=== PATIENT | male | born 1975 | race Caucasian/White ===

== ENCOUNTER 2017-04-04 12:50 | Emergency (ER) | payer SELFPAY ==
[~2017-04-04] VITALS: Ht 172.7 cm; Wt 81.6 kg
[2017-04-04] MEDS ORDERED: ACETAMINOPHEN ES 500 MG TABLET PO ONE (13:15)
[2017-04-04] MEDS ORDERED: IV NORMAL SALINE 1000 ML BAG IV ONE (13:15)
[2017-04-04] MEDS ORDERED: ACETAMINOPHEN ES 500 MG TABLET ONE (13:22)
[2017-04-04 13:34] LABS: BASOPHILS # (AUTO) 0.1 K/uL (0.0-8.0); BASOPHILS % (AUTO) 0.6 % (0.0-2.0); EOSINOPHILS # (AUTO) 0.2 K/uL (0.0-0.7); EOSINOPHILS % (AUTO) 1.8 % (0.0-7.0); HEMATOCRIT 42.5 % (36.7-47.1); HEMOGLOBIN 14.3 g/dL (12.5-16.3); LYMPHOCYTES % (AUTO) 17.4 % (20.5-51.5); MEAN CORPUSCULAR HEMOGLOBIN 30.3 uug (23.8-33.4); MEAN CORPUSCULAR HGB CONC 34 g/dL (32.5-36.3); MONOCYTES # (AUTO) 0.8 K/uL (2.0-10.0); MONOCYTES % (AUTO) 6.7 % (0.0-11.0); NEUTROPHILS # (AUTO) 8.4 K/uL (1.8-8.9); NEUTROPHILS % (AUTO) 73.5 % (38.5-71.5); PLATELET COUNT (AUTO) 194 K/uL (152-348); RED BLOOD CELL COUNT(AUTO) 4.72 MIL/uL (4.06-5.63); WHITE BLOOD COUNT (AUTO) 11.5 K/uL (3.6-10.2)
[2017-04-04 13:45] LABS: CREATININE 1.2 mg/dL (0.6-1.3); POTASSIUM 3.9 mmol/L (3.5-5.1)
[2017-04-04 13:50] LABS: BILIRUBIN,DIRECT 0.1 mg/dL (0.0-0.2); BILIRUBIN,TOTAL 0.4 mg/dL (0.2-1.0)
--- NOTE | 2017-04-04 14:02 | NUR ---
Pt resting in gurney with eyes closed and no s/s of distress.
--- NOTE | 2017-04-04 15:18 | NUR ---
Patient discharged to home in stable conditon. Written and verbal after care instructions given. Patient verbalizes understanding of instructions. Stressed follow up with pmd or return to ER for worsening s/s.
== END 2017-04-04 15:19 | disposition home or self-care (01) ==
LOC: ER 12:50
DX: J02.0 Streptococcal pharyngitis (principal); R07.9 Chest pain, unspecified
CPT/HCPCS: 36415; 71010; 80048; 80076; 83605; 84484; 85025; 85730; 86403; 87040 ×2; 87400; 93005; 99285; A4663; 70030-TC

== ENCOUNTER 2017-07-26 18:24 | Emergency (ER) | payer SELFPAY ==
[~2017-07-26] VITALS: Ht 172.7 cm; Wt 79.4 kg
[2017-07-26] MEDS ORDERED: ACETAMINOPHEN ES 500 MG TABLET PO ONE (19:00)
[2017-07-26] MEDS ORDERED: IBUPROFEN 600 MG TABLET PO ONE (19:00)
[2017-07-26] MEDS ORDERED: IBUPROFEN 600 MG TABLET ONE (19:23)
[2017-07-26] MEDS ORDERED: ACETAMINOPHEN ES 500 MG TABLET ONE (19:23)
--- NOTE | 2017-07-26 19:50 | NUR ---
Patient discharged to home in stable conditon. Written and verbal after care instructions given. Patient verbalizes understanding of instructions. PATIENT LEFT WITH STABLE GAIT.
[2017-07-26 19:51] VITALS: BP 137/67
== END 2017-07-26 19:51 | disposition home or self-care (01) ==
LOC: ER 18:24
DX: R05 Cough (principal); R07.89 Other chest pain; F17.200 Nicotine dependence, unspecified, uncomplicated
CPT/HCPCS: 71045; 93005; 99284; A4663

== ENCOUNTER 2024-02-09 19:47 | Emergency (ER) | payer MEDICAID | END 2024-02-09 20:17 | disposition left against medical advice (07) | LOC: ER 19:53 | DX: K04.7 Periapical abscess without sinus (principal); Z53.21 Procedure and treatment not carried out due to patient leaving prior to being seen by health care provider ==

== ENCOUNTER 2024-08-03 12:47 | Emergency (ER) | payer MEDICAID ==
[~2024-08-03] VITALS: Ht 172.7 cm; Wt 84.8 kg
[2024-08-03] MEDS ORDERED: SULF1TAB48 PO (13:49)
[2024-08-03] MEDS ORDERED: CEPH500C2 PO (13:49)
[2024-08-03] MEDS ORDERED: HYDR-3980 PO (13:49)
[2024-08-03 14:14] VITALS: BP 101/63; O2SAT 99
== END 2024-08-03 14:14 | disposition home or self-care (01) ==
LOC: ER 12:47
DX: L02.511 Cutaneous abscess of right hand (principal); F17.200 Nicotine dependence, unspecified, uncomplicated
CPT/HCPCS: A4606; A4663